=== PATIENT | male | born 1995 | race Caucasian/White ===

== ENCOUNTER 2023-04-29 05:53 | Emergency (ER) | payer BC ==
[2023-04-29 06:11] VITALS: RESP 18
--- NOTE | 2023-04-29 07:08 | ED ---
ENT HPI - General Chief complaint: Dental/Oral Stated complaint: Foreign object under tounge Time Seen by Provider: 04/29/23 06:12 Source: patient, RN notes reviewed Mode of arrival: ambulatory Limitations: no limitations - History of Present Illness Initial comments: This is a 28-year-old male who presents to the emergency department for concerns of parasite. States that this morning he noticed that the right side of his tongue started to feel numb and he saw a couple white bugs fall out of his mouth. He states that these looked like white ants. Denies any pain associated with this. Denies coming into contact with any new foods or substances. Also denies any recent travel. The left side of the tongue is bruised, which he states is from accidentally biting it a few days ago. MD complaint: sore throat - Related Data Allergies Allergy/AdvReac Type Severity Reaction Status Date / Time No Known Allergies Allergy Verified 04/29/23 06:10 Review of Systems ROS Statement: Those systems with pertinent positive or pertinent negative responses have been documented in the HPI. ROS Other: All systems not noted in ROS Statement are negative. Past Medical History Past Medical History: No Reported History History of Any Multi-Drug Resistant Organisms: None Reported Past Surgical History: No Surgical Hx Reported Past Psychological History: No Psychological Hx Reported Smoking Status: Vaper Past Alcohol Use History: Occasional Past Drug Use History: None Reported General Exam Limitations: no limitations General appearance: alert, in no apparent distress Head exam: Present: atraumatic, normocephalic, normal inspection Eye exam: Present: scleral icterus ENT exam: Present: other (Sublingual hematoma to the left side. No posterior pharyngeal erythema. No visible parasites) Respiratory exam: Present: normal lung sounds bilaterally. Absent: respiratory distress, wheezes, rales, rhonchi, stridor Cardiovascular Exam: Present: regular rate, normal rhythm, normal heart sounds. Absent: systolic murmur, diastolic murmur, rubs, gallop, clicks Neurological exam: Present: alert, oriented X3, CN II-XII intact Psychiatric exam: Present: normal affect, normal mood Course Vital Signs 04/29/23 04/29/23 06:05 07:29 Temperature 97.9 F 97.8 F Pulse Rate 105 H 128 H Respiratory 18 18 Rate Blood Pressure 182/110 158/112 O2 Sat by Pulse 98 96 Oximetry Medical Decision Making - Medical Decision Making This is a 28-year-old male who presents to the emergency department for concerns of a parasitic infection. Was pt. sent in by a medical professional or institution? @ -No Did you speak to anyone other than the patient for history? @ -No Did you review nursing and triage notes? @ -Yes, and I agree, it is accurate with regards to the patient's symptoms. Were old charts reviewed? @ -No Differential Diagnosis? @ -Differential Parasite: Foreign body, insect, mental health diagnosis, drug use, this is not meant to be an all-inclusive list. EKG interpreted by me (3pts min.)? @ -Not obtained X-rays interpreted by me (1pt min.)? @ -Not obtained CT interpreted by me (1pt min.)? @ -Not obtained U/S interpreted by me (1pt. min.)? @ -Not obtained What testing was considered but not performed? (CT, X-rays, U/S, labs)? Why? @ -None What meds were considered but not given? Why? @ -None Did you discuss the management of the patient with other professionals? @ -No Did you reconcile home meds? @ -No Was smoking cessation discussed for >3mins.? @ -No Was critical care preformed (if so, how long)? @ -No Were there social determinants of health that impacted care today? How? (Homelessness, low income, unemployed, alcoholism, drug addiction, transportation, low edu. Level, literacy, decrease access to med. care, alf, rehab)? @ -No Was there de-escalation of care discussed even if they declined? (Discuss DNR or withdrawal of care, Hospice)? @ -No What co-morbidities impacted this encounter? (DM, HTN, Smoking, COPD, CAD, Cancer, CVA, Hep., AIDS, mental health diagnosis, sleep apnea, morbid obesity)? @ -None Was patient admitted / discharged? @ -Discharged. I did not identify any evidence of a parasite on physical exa mination. Patient did however have fairly prominent scleral icterus. I attempted to obtain a urinalysis and urine drug screen to evaluate for any illicit substances such as methamphetamines that may be causing the concerns of a parasitic infection as well as the presence of any bilirubin due to the scleral icterus. However, the patient was unable to provide a urine sample in the emergency department prior to discharge and he did not want to wait to have one done. He also declined workup for the scleral icterus. Advised that if he notices another bug, he needs to try to catch it or take a photograph of this in order for us to treat him appropriately, as at this time it is not clear what he may actually have going on. He was also given information for follow-up with primary care providers regarding the scleral icterus. Advised he contact them to become established for ongoing medical care and further evaluation of the possibility of liver problems. Undiagnosed new problem with uncertain prognosis? @ -None Drug Therapy requiring intensive monitoring for toxicity (Heparin, Nitro, Insulin, Cardizem)? @ -None Were any procedures done? @ -None Diagnosis/symptom? @ -Abnormal mouth sensation, scleral icterus Acute, or Chronic, or Acute on Chronic? @ -Acute Uncomplicated (without systemic symptoms) or Complicated (systemic symptoms)? @ -Uncomplicated Side effects of treatment? @ -None Exacerbation, Progression, or Severe Exacerbation] @ -Not applicable Poses a threat to life or bodily function? @ -Unlikely Return precautions reviewed in depth, the patient is instructed to return to the emergency department with any new, worsening, or concerning symptoms. Patient verbalized understanding. This case was discussed in detail with the attending ED physician, Dr. Galvan. Presentation, findings, and treatment plan discussed in detail as well. Disposition Clinical Impression: Abnormal mouth sensation, Scleral icterus Disposition: HOME SELF-CARE Additional Instructions: Return to the emergency department with any new, worsening, or concerning symptoms. Try to catch a bug or take a picture of it if you see another one. I have provided you with a list of local primary care providers. Try to contact them to become established for ongoing medication management. Is patient prescribed a controlled substance at d/c from ED?: No Referrals: None,Stated [Primary Care Provider] - 1-2 days Forms: [facility]
[2023-04-29 08:18] VITALS: BP 158/112; PULSE 128; TEMP 97.8
== END 2023-04-29 07:30 | disposition home or self-care (01) ==
LOC: EC 05:53
DX: H15.89 Other disorders of sclera (principal); K13.29 Other disturbances of oral epithelium, including tongue; F17.290 Nicotine dependence, other tobacco product, uncomplicated
CPT/HCPCS: 99283

== ENCOUNTER 2023-09-22 12:17 | Emergency (ER) | payer BC ==
[2023-09-22 13:07] VITALS: RESP 18; TEMP 97.8
--- NOTE | 2023-09-22 13:11 | ED ---
General Adult HPI - General Chief complaint: Recheck/Abnormal Lab/Rx Stated complaint: Abnormal labs Time Seen by Provider: 09/22/23 12:46 Source: patient Mode of arrival: ambulatory Limitations: no limitations - History of Present Illness Initial comments: Dictation was produced using [employer] dictation software. please excuse any grammatical, word or spelling errors. Chief Complaint: 28-year-old cirrhotic male presents to the emergency department for paracentesis History of Present Illness: Patient 28-year-old male he was seen at his primary care physician's office by the physician emergency veterinary assistant. Patient states that for the last 1 month he has been getting weekly paracentesis. He initially presented to [facility] where his first 2 paracentesis were performed. States that his abdominal fluid secondary to cirrhotic liver from heavy drinking. The PA that he saw states that she was unable to schedule his paracentesis distracted patient to come to the emergency department for urgent paracentesis. Patient denies any shortness of breath. Denies any fever or abdominal pain. The ROS documented in this emergency department record has been reviewed and confirmed by me. Those systems with pertinent positive or negative responses have been documented in the HPI. All other systems are other negative and/or noncontributory. - Related Data Home Medications Medication Instructions Recorded Confirmed Magnesium Oxide [Mag-Ox] 400 mg PO BID 09/22/23 09/22/23 Metoprolol Tartrate [Lopressor] 25 mg PO Q12H 09/22/23 09/22/23 Omeprazole 20 mg PO BID-W/MEALS 09/22/23 09/22/23 Spironolactone [Aldactone] 50 mg PO DAILY 09/22/23 09/22/23 Allergies Allergy/AdvReac Type Severity Reaction Status Date / Time No Known Allergies Allergy Verified 09/22/23 14:06 Review of Systems ROS Statement: Those systems with pertinent positive or pertinent negative responses have been documented in the HPI. ROS Other: All systems not noted in ROS Statement are negative. Past Medical History Past Medical History: No Reported History History of Any Multi-Drug Resistant Organisms: None Reported Past Surgical History: No Surgical Hx Reported Past Psychological History: No Psychological Hx Reported Smoking Status: Vaper Past Alcohol Use History: None Reported Past Drug Use History: None Reported General Exam - General Exam Comments Initial Comments: PHYSICAL EXAM: General Impression: Alert and oriented x3, not in acute distress HEENT: Normocephalic atraumatic, extra-ocular movements intact, pupils equal and reactive to light bilaterally, mucous membranes moist. Cardiovascular: Heart regular rate and rhythm Chest: Able to complete full sentences, no retractions, no tachypnea Abdomen: abdomen soft, non-tender, mild distention and fluid wave, no organomegaly Musculoskeletal: Pulses present and equal in all extremities, no peripheral edema Motor: no focal deficits noted Neurological: CN II-XII grossly intact, no focal motor or sensory deficits noted Skin: Intact with no visualized rashes Psych: Normal affect and mood Limitations: no limitations Course Vital Signs 09/22/23 09/22/23 09/22/23 12:27 13:33 14:10 Temperature 97.8 F Pulse Rate 104 H 103 H 108 H Respiratory 18 18 18 Rate Blood Pressure 141/94 129/87 128/89 O2 Sat by Pulse 96 98 99 Oximetry - Reevaluation(s) Reevaluation #1: 09/22/23 14:17 Patient care was discussed with interventional radiology who vitamin with a phone number for patient to arrange for outpatient paracentesis. According to nursing radiology patient will need an ultrasound and some blood work prior to scheduled outpatient procedure. Laboratory evaluation obtained. CBC coag panel is unremarkable. Metabolic panel is within acceptable limits. Ultrasound shows ascites. Medical Decision Making - Medical Decision Making Was pt. sent in by a medical professional or institution (DAMARIS Croft, FLORAL ASSISTANT, urgent care, hospital, or alf...) When possible be specific @ -No Did you speak to anyone other than the patient for history (EMS, parent, family, police, friend...)? What history was obtained from this source @ -No Did you review nursing and triage notes (agree or disagree)? Why? @ -I reviewed and agree with nursing and triage notes Were old charts reviewed (outside hosp., previous admission, EMS record, old EKG, old radiological studies, urgent care reports/EKG's, alf records)? Report findings @ -No old charts were reviewed Differential Diagnosis (chest pain, altered mental status, abdominal pain women, abdominal pain men, vaginal bleeding, musculoskeletal, weakness, fever, dyspnea, syncope, headache, dizziness, GI bleed, back pain, seizure, CVA, palpatations, mental health)? @ -Not applicable EKG interpreted by me (3pts min.). @ -None done X-rays interpreted by me (1pt min.). @ -None done CT interpreted by me (1pt min.). @ -None done U/S interpreted by me (1pt. min.). @ -Ultrasound abdomen shows ascites What testing was considered but not performed or refused? (CT, X-rays, U/S, labs)? Why? @ -None What meds were considered but not given or refused? Why? @ -None Did you discuss the management of the patient with other professionals (professionals i.e. , PA, FLORAL ASSISTANT, lab, RT, psych nurse, medical social consultant, loss prevention leader, teacher, enforcement officer, upper caser)? Give summary @ -See above Was smoking cessation discussed for >3mins.? @ -No Was critical care preformed (if so, how long)? @ -No Were there social determinants of health that impacted care today? How? (Homelessness, low income, unemployed, alcoholism, drug addiction, transportation, low edu. Level, literacy, decrease access to med. care, penitentiary, rehab)? @ -No Was there de-escalation of care discussed even if they declined (Discuss DNR or withdrawal of care, Hospice)? DNR status @ -No What co-morbidities impacted this encounter? (DM, HTN, Smoking, COPD, CAD, C ancer, CVA, ARF, Chemo, Hep., AIDS, mental health diagnosis, sleep apnea, morbid obesity)? @ -None Was patient admitted / discharged? Hospital course, mention meds given and route, prescriptions, significant lab abnormalities, going to OR and other pertinent info. @ -28-year-old male who was sent here by DAMARIS from PCPs office for emergent paracentesis. Patient in no acute distress. He does have abdominal ascites seen on ultrasound. Patient does not need emergent or urgent paracentesis at this time. Mother was not sure how to arrange outpatient paracentesis. We did contact interventional radiology who will connect with patient to perform outpatient paracentesis. Undiagnosed new problem with uncertain prognosis? @ -No Drug Therapy requiring intensive monitoring for toxicity (Heparin, Nitro, Insulin, Cardizem)? @ -No Were any procedures done? @ -No Diagnosis/symptom? Acute, or Chronic, or Acute on Chronic? Uncomplicated (without systemic symptoms) or Complicated (systemic symptoms)? @ -Abdominal ascites Side effects of treatment? @ -No Exacerbation, Progression, or Severe Exacerbation? @ -No Poses a threat to life or bodily function? How? (Chest pain, USA, CT, pneumonia, PE, COPD, DKA, ARF, appy, cholecystitis, CVA, Diverticulitis, Homicidal, Suicidal, threat to staff... and all critical care pts) @ -No - Lab Data Result diagrams: 09/22/23 13:33 09/22/23 13:32 Lab Results 09/22/23 09/22/23 09/22/23 Range/Units 13:32 13:32 13:33 WBC 10.5 (3.8-10.6) k/uL RBC 3.55 L (4.30-5.90) m/uL Hgb 12.7 L (13.0-17.5) gm/dL Hct 39.2 (39.0-53.0) % MCV 110.4 H (80.0-100.0) fL MCH 35.8 H (25.0-35.0) pg MCHC 32.4 (31.0-37.0) g/dL RDW 13.1 (11.5-15.5) % Plt Count 312 (150-450) k/uL MPV 8.8 Neutrophils % 75 % Lymphocytes % 15 % Monocytes % 5 % Eosinophils % 4 % Basophils % 0 % Neutrophils # 7.9 H (1.3-7.7) k/uL Lymphocytes # 1.6 (1.0-4.8) k/uL Monocytes # 0.5 (0-1.0) k/uL Eosinophils # 0.4 (0-0.7) k/uL Basophils # 0.0 (0-0.2) k/uL Manual Slide Review Performed Macrocytosis Marked A PT 14.3 H (10.0-12.5) sec INR 1.4 H (<1.2) APTT 28.3 (22.0-30.0) sec Sodium 134 L (137-145) mmol/L Potassium 5.7 H (3.5-5.1) mmol/L Chloride 104 (98-107) mmol/L Carbon Dioxide 27 (22-30) mmol/L Anion Gap 3 mmol/L BUN 7 L (9-20) mg/dL Creatinine 0.56 L (0.66-1.25) mg/dL Est GFR (CKD-EPI)AfAm >90 (>60 ml/min/1.73 sqM) Est GFR (CKD-EPI)NonAf >90 (>60 ml/min/1.73 sqM) Glucose 104 H (74-99) mg/dL Calcium 8.9 (8.4-10.2) mg/dL Disposition Clinical Impression: Ascites Disposition: HOME SELF-CARE Condition: Good Instructions (If sedation given, give patient instructions): Ascites (ED), Paracentesis (DC) Additional Instructions: Interventional Radiology can be contacted at [phone]. Central Scheduling can be reached at [phone]. You are scheduled for 09/26 at Nothing to eat or drink day of procedure after 6am to prepare for procedure. Is patient prescribed a controlled substance at d/c from ED?: No Referrals: Leandro Pritchett MD [Primary Care Provider] - 1-2 days Time of Disposition: 14:46
[2023-09-22 13:50] LABS: Basophils % (A) 0 %; Eosinophils # (A) 0.4 k/uL (0-0.7); Eosinophils % (A) 4 %; HCT 39.2 % (39.0-53.0); HGB 12.7 gm/dL (13.0-17.5); Lymphocytes # (A) 1.6 k/uL (1.0-4.8); Lymphocytes % (A) 15 %; MCH 35.8 pg (25.0-35.0); MCHC 32.4 g/dL (31.0-37.0); MCV 110.4 fL (80.0-100.0); Macrocytosis Marked; Mean Platelet Volume 8.8; Monocytes # (A) 0.5 k/uL (0-1.0); Monocytes % (A) 5 %; Neutrophils # (A) 7.9 k/uL (1.3-7.7); Neutrophils % (A) 75 %; Platelet Count 312 k/uL (150-450); RBC 3.55 m/uL (4.30-5.90); RDW 13.1 % (11.5-15.5); WBC 10.5 k/uL (3.8-10.6)
[2023-09-22 14:08] LABS: African American GFR (CKD) >90 (>60 ml/min/1.73 sqM); Anion Gap 3 mmol/L; Blood Urea Nitrogen 7 mg/dL (9-20); Calcium 8.9 mg/dL (8.4-10.2); Carbon Dioxide 27 mmol/L (22-30); Chloride 104 mmol/L (98-107); Glucose 104 mg/dL (74-99); Non-African American GFR(CKD) >90 (>60 ml/min/1.73 sqM); Sodium 134 mmol/L (137-145)
--- NOTE | 2023-09-22 14:14 | US ---
EXAMINATION TYPE: US abdomen limited DATE OF EXAM: 09/22/2023 COMPARISON: NONE CLINICAL INDICATION: Male, 28 years old with history of cirrhosis; Patient states having Para's x 2 w ith last one 1 week ago. Patient is NPO. TECHNIQUE: Multiple sonographic images of the right upper quadrant are obtained. FINDINGS: EXAM MEASUREMENTS: Liver Length: 20.5 cm Gallbladder Wall: 1.6 cm CHD: 0.7 cm Right Kidney: 11.2 x 4.5 x 5.3 cm Pancreas: Tail obscured by overlying bowel gas. Limited by bowel gas Liver: Appears enlarged in size. Difficult to penetrate. Echogenic in appearance. Gallbladder: Wall thickening. Gallbladder lumen suboptimally visualized. No prominent stones seen. Evidence for sonographic Blount's sign: neg CBD: Obscured by overlying bowel gas. CHD seen. Right Kidney: No hydronephrosis or masses seen Incidental finding: Fluid visualized in all 4 quadrants IMPRESSION: 1. Small amount of ascites. 2. Hepatomegaly correlate for underlying hepatocellular disease or cirrhosis. 3. The common hepatic duct is slightly dilated 0.7 cm.
[2023-09-22 14:15] LABS: INR 1.4 (<1.2); Partial Thromboplastin Time 28.3 sec (22.0-30.0); Prothrombin Time 14.3 sec (10.0-12.5)
[2023-09-22 14:25] LABS: Potassium 5.7 mmol/L (3.5-5.1)
[2023-09-22 14:39] VITALS: BP 128/89; PULSE 108
== END 2023-09-22 15:13 | disposition home or self-care (01) ==
LOC: EC 12:17
DX: R18.8 Other ascites (principal); F17.290 Nicotine dependence, other tobacco product, uncomplicated
CPT/HCPCS: 36415; 76705; 80048; 85025; 85610; 85730; 99284

== ENCOUNTER 2023-09-28 12:11 | Day surgery (SDC) | payer BC ==
[2023-09-28 12:52] LABS: Basophils % (A) 0 %; Eosinophils # (A) 0.4 k/uL (0-0.7); Eosinophils % (A) 4 %; HCT 42.7 % (39.0-53.0); HGB 13.6 gm/dL (13.0-17.5); Lymphocytes % (A) 17 %; MCH 34.6 pg (25.0-35.0); MCHC 31.9 g/dL (31.0-37.0); MCV 108.6 fL (80.0-100.0); Macrocytosis Moderate; Mean Platelet Volume 8.1; Monocytes # (A) 0.5 k/uL (0-1.0); Monocytes % (A) 5 %; Neutrophils # (A) 8.3 k/uL (1.3-7.7); Neutrophils % (A) 73 %; Platelet Count 316 k/uL (150-450); RBC 3.93 m/uL (4.30-5.90); RDW 12.7 % (11.5-15.5); WBC 11.4 k/uL (3.8-10.6)
[2023-09-28 13:02] LABS: ALT 42 U/L (4-49); African American GFR (CKD) >90 (>60 ml/min/1.73 sqM); Anion Gap 8 mmol/L; Blood Urea Nitrogen 7 mg/dL (9-20); Calcium 9.2 mg/dL (8.4-10.2); Carbon Dioxide 25 mmol/L (22-30); Chloride 102 mmol/L (98-107); Glucose 113 mg/dL (74-99); Non-African American GFR(CKD) >90 (>60 ml/min/1.73 sqM); Sodium 135 mmol/L (137-145); Total Bilirubin 6.6 mg/dL (0.2-1.3)
[2023-09-28 13:13] VITALS: RESP 18
[2023-09-28 13:13] LABS: INR 1.5 (<1.2); Prothrombin Time 15.1 sec (10.0-12.5)
[2023-09-28 13:18] LABS: AST 300 U/L (17-59); Alkaline Phosphatase 170 U/L (38-126); Potassium 5.6 mmol/L (3.5-5.1)
[2023-09-28] MEDS: ALBUMIN HUMAN 25% 50 ML in EMPTY BAG 1 BAG IVPB SCH (14:58)
[2023-09-28 15:23] VITALS: BP 129/80; PULSE 99
[2023-09-29 05:20] LABS: Appearance,BF Clear (Clear)
--- NOTE | 2023-09-30 15:23 | US ---
EXAMINATION TYPE: US paracentesis abd w/image DATE OF EXAM: 09/28/2023 2:25 PM CLINICAL INDICATION:Male, 28 years old with history of K70.31 ALCOHOLIC CIRRHOSIS OF LIVER WITH ASCIT ES; COMPARISON: 1024 ATTENDING: Dr. Johnathan Jackson PROCEDURE: Informed consent was obtained. The risks of the procedure were extensively explained incl uding risk of damage to surrounding bowel with perforation and need for additional procedures. Proced ure was performed in the ultrasound procedure suite. Ultrasound imaging of the abdomen demonstrate as citic fluid. An appropriate access site was localized to the right lower abdomen. Timeout was taken p er protocol. The skin was prepped and draped in the usual sterile fashion and then locally anesthetiz ed with 1% lidocaine. The peritoneal cavity was then accessed via a 5-English one-step needle/cathete r. Approximately 6900 cc of clear straw-colored fluid was obtained. Samples were sent to the lab for analysis. Postprocedural imaging of the abdomen demonstrate a minimal amount of abdominal fluid. Patient tolerated procedure well without immediate complication. Hemostasis at the procedural site w as obtained with a sterile bandage placed. The patient was monitored in the holding area following th e procedure and was subsequently discharged in stable condition. IMPRESSION: Ultrasound guided paracentesis, with approximately 6900 cc of clear straw-colored fluid drained. Path ology results pending. No immediate complications were evident.
== END 2023-09-28 15:49 | disposition home or self-care (01) ==
LOC: RADPROMAIN 12:11
PROVIDERS: ATTEND Family Medicine
DX: K70.31 Alcoholic cirrhosis of liver with ascites (principal)
CPT/HCPCS: 80053; 89050; 85025; 85610; 36415; 49083; P9047